=== PATIENT | male | born 1945 | race Caucasian/White ===

== ENCOUNTER 2022-11-26 05:49 | Inpatient (IN) ==
[2022-11-26] MEDS ORDERED: Lactated Ringers 1000 ml BAG 1,000 ML IV SCH (06:00)
[2022-11-26] MEDS ORDERED: Buffered Lidocaine 1% SYRIN 1 ml INTRADERM ONE (06:00)
[2022-11-26] MEDS ORDERED: Buffered Lidocaine 1% SYRIN 1 ml ONE (06:07)
[2022-11-26] MEDS ORDERED: ceFAZolin 2 GM PREMIX 2 GM/50 ML BAG ONE (06:07)
[2022-11-26 06:54] LABS: Rapid COVID-19 Molecular Undetected (Undetected)
[2022-11-26] MEDS ORDERED: Ondansetron 4 mg VIAL 2 MG/ML 2 ml VIAL ONE ×2 (07:14→08:42)
[2022-11-26] MEDS ORDERED: fentaNYL 100 mcg/2 ml 50 MCG/ML VIAL ONE ×2 (07:14→07:17)
[2022-11-26] MEDS ORDERED: Propofol 10 MG/ML 20 ML BTL ONE (07:15)
[2022-11-26] MEDS ORDERED: ROPIVACAINE 5 MG/ML 30 ML BTL (0.5%) ONE (07:15)
[2022-11-26] MEDS ORDERED: Lidocaine 2% PF 5 ML VIAL ONE (07:16)
[2022-11-26] MEDS ORDERED: Midazolam 2 mg/2 ml VIAL 1 mg/ml 2 ml VIAL (2 mg) ONE (07:16)
[2022-11-26] MEDS ORDERED: Bupivacaine 0.25% SDV 30 ML ONE (07:17)
[2022-11-26] MEDS ORDERED: Dexamethasone IV 4 MG/ML VIAL 1 ml VIAL ONE (08:42)
[2022-11-26] MEDS ORDERED: Acetaminophen IV 1 GM/100ML 1,000 MG/100 ML BAG IV ONE (08:51)
[2022-11-26] MEDS ORDERED: Ondansetron 4 mg VIAL 2 MG/ML 2 ml VIAL IV PRN ×2 (09:04→10:39)
[2022-11-26] MEDS ORDERED: fentaNYL 100 mcg/2 ml 50 MCG/ML VIAL IV PRN (09:04)
[2022-11-26] MEDS ORDERED: HYDROmorphone 1 MG/1 ML SYRINGE IV PRN (09:04)
[2022-11-26] MEDS ORDERED: Naloxone 0.4 mg VIAL 0.4 mg/ml 1 ml VIAL IV PRN (09:04)
[2022-11-26] MEDS ORDERED: Magnesium Hydroxide LIQ 30 ML UDC PO PRN (10:39)
[2022-11-26] MEDS ORDERED: Lactulose 30 ml UDC PO PRN (10:39)
[2022-11-26] MEDS ORDERED: Ondansetron ODT 4 mg TAB 4 MG TAB PO PRN (10:39)
[2022-11-26] MEDS: Carbidopa/Levodop 25/100 MG TAB PO SCH ×2 (13:39→22:21)
[2022-11-26] MEDS: ceFAZolin 1 GM ADVAN 1 GM in NS 0.9% 50 ML 50 ML IVPB SCH (17:44)
[2022-11-26] MEDS: Sodium Bicarb 650 mg (ANTACID) TAB PO SCH (20:39)
[2022-11-26] MEDS: Carbidopa/Levodop CR 50/200 TAB.CR PO SCH (20:41)
[2022-11-26] MEDS: Magnesium Hydroxide LIQ 30 ML UDC PO SCH ×2 (20:42→20:43)
[2022-11-26] MEDS: NF: Azelastine 0.15% NASAL(NF) 30 ML BTL BOTH NARES SCH (22:21)
[2022-11-27] MEDS: ceFAZolin 1 GM ADVAN 1 GM in NS 0.9% 50 ML 50 ML IVPB SCH ×2 (01:40→08:06)
[2022-11-27] MEDS: Carbidopa/Levodop 25/100 MG TAB PO SCH ×4 (04:14→23:03)
[2022-11-27 05:46] LABS: Hematocrit 33.5 % (38-53); Hemoglobin 11.5 g/dL (13.2-16.3); Mean Platelet Volume 9.5 fL (7.5-11.2); Platelet Count 118 10^3/uL (150-450)
[2022-11-27 06:13] LABS: Calcium 8.5 mg/dL (8.6-10.3); Creatinine, Serum 4.43 mg/dL (0.67-1.17); Potassium 4.9 mmol/L (3.5-5.0); eGFR CKD-EPI 12.8 (>60)
[2022-11-27] MEDS: Sodium Bicarb 650 mg (ANTACID) TAB PO SCH ×2 (08:12→23:02)
[2022-11-27] MEDS: Magnesium Hydroxide LIQ 30 ML UDC PO SCH ×2 (08:14→23:03)
[2022-11-27] MEDS: Vitamin THERAPEUTIC TAB PO SCH (08:14)
[2022-11-27] MEDS: NF: Azelastine 0.15% NASAL(NF) 30 ML BTL BOTH NARES SCH ×2 (08:17→23:02)
[2022-11-27] MEDS ORDERED: Aspirin EC 325 mg TAB.EC PO SCH (12:00)
[2022-11-27] MEDS: Enoxaparin 30 MG/0.3 ML SYR SUBCUT SCH (13:23)
[2022-11-27] MEDS: Carbidopa/Levodop CR 50/200 TAB.CR PO SCH (23:00)
[2022-11-28 06:14] LABS: Calcium 8.9 mg/dL (8.6-10.3); Creatinine, Serum 4.82 mg/dL (0.67-1.17); Potassium 4.8 mmol/L (3.5-5.0); eGFR CKD-EPI 11.6 (>60)
[2022-11-28] MEDS: Sodium Bicarb 650 mg (ANTACID) TAB PO SCH (08:23)
[2022-11-28] MEDS: Vitamin THERAPEUTIC TAB PO SCH (08:25)
[2022-11-28] MEDS: Magnesium Hydroxide LIQ 30 ML UDC PO SCH (08:26)
[2022-11-28] MEDS: Carbidopa/Levodop 25/100 MG TAB PO SCH ×2 (08:26→14:47)
[2022-11-28] MEDS: NF: Azelastine 0.15% NASAL(NF) 30 ML BTL BOTH NARES SCH (09:16)
[2022-11-28] MEDS: Enoxaparin 30 MG/0.3 ML SYR SUBCUT SCH (12:22)
[2022-11-28 15:05] VITALS: BP 137/73
== END 2022-11-28 18:03 | DRG 493 ==
LOC: AA 05:49 → SSU 10:39
PROVIDERS: ADMIT Orthopaedic Surgery; ATTEND Orthopaedic Surgery

== ENCOUNTER 2022-11-28 13:01 | Inpatient (IN) ==
[2022-11-28] MEDS ORDERED: Magnesium Hydroxide LIQ 30 ML UDC PO PRN (18:34)
[2022-11-28] MEDS: Carbidopa/Levodop 25/100 MG TAB PO SCH (21:15)
[2022-11-28] MEDS: Carbidopa/Levodop CR 50/200 TAB.CR PO SCH (21:16)
[2022-11-28] MEDS: Sodium Bicarb 650 mg (ANTACID) TAB PO SCH (21:17)
[2022-11-28] MEDS: Senna TAB 8.6 mg TAB PO PRN (21:19)
[2022-11-29 07:36] LABS: Albumin 3.6 g/dL (3.2-5.2); Albumin/Globulin Ratio 1.3 (1-3); Calcium 9.1 mg/dL (8.6-10.3); Creatinine, Serum 4.47 mg/dL (0.67-1.17); Globulin 2.7 g/dL (2-4); Total Bilirubin 1.1 mg/dL (0.2-1.0); Total Protein 6.3 g/dL (6.4-8.9); eGFR CKD-EPI 12.7 (>60)
[2022-11-29 08:03] LABS: ABS Eosinophils 0.3 10^3/uL (0.0-0.5); ABS Lymphocytes 1.1 10^3/uL (1.0-4.8); ABS Monocytes 1.3 10^3/uL (0.0-1.1); ABS Neutrophils 6.8 10^3/uL (1.5-7.6); ABS Nucleated RBC 0.01 10^3/ul; Eosinophil % 2.8 %; Hematocrit 36.8 % (38-53); Hemoglobin 12.5 g/dL (13.2-16.3); Lymphocyte % 11.8 %; Mean Corpuscular Hemoglobin 32.7 pg (27-33); Mean Corpuscular Hgb Conc 34.1 g/dL (31-36); Mean Platelet Volume 9.6 fL (7.5-11.2); Nucleated Red Blood Cells % 0.1 /100 WBC (0.0-0.4); Platelet Count 120 10^3/uL (150-450); Red Blood Count 3.83 10^6/uL (4.06-5.63); Red Cell Distribution Width 13.6 % (12-17); White Blood Count 9.5 10^3/uL (3.6-10.2)
[2022-11-29 08:13] LABS: Potassium 4.9 mmol/L (3.5-5.0)
[2022-11-29] MEDS: Sodium Bicarb 650 mg (ANTACID) TAB PO SCH ×2 (08:59→20:32)
[2022-11-29] MEDS: Carbidopa/Levodop 25/100 MG TAB PO SCH ×3 (09:00→18:00)
[2022-11-29] MEDS: Enoxaparin 30 MG/0.3 ML SYR SUBCUT SCH (12:12)
[2022-11-29] MEDS: Carbidopa/Levodop CR 50/200 TAB.CR PO SCH (20:32)
[2022-11-29] MEDS: PTO:Azelastine 0.15% NASAL(NF) 30 ML BTL BOTH NARES SCH (20:33)
[2022-11-30] MEDS: Sodium Bicarb 650 mg (ANTACID) TAB PO SCH ×2 (08:22→21:03)
[2022-11-30] MEDS: Carbidopa/Levodop 25/100 MG TAB PO SCH ×3 (08:22→18:24)
[2022-11-30] MEDS: Enoxaparin 30 MG/0.3 ML SYR SUBCUT SCH (12:09)
[2022-11-30] MEDS: PTO:Azelastine 0.15% NASAL(NF) 30 ML BTL BOTH NARES SCH ×2 (12:58→20:05)
[2022-11-30] MEDS: Carbidopa/Levodop CR 50/200 TAB.CR PO SCH (21:03)
[2022-12-01] MEDS: Carbidopa/Levodop 25/100 MG TAB PO SCH ×3 (08:30→16:49)
[2022-12-01] MEDS: Sodium Bicarb 650 mg (ANTACID) TAB PO SCH ×2 (08:31→21:21)
[2022-12-01] MEDS: PTO:Azelastine 0.15% NASAL(NF) 30 ML BTL BOTH NARES SCH ×2 (10:08→21:20)
[2022-12-01] MEDS: Enoxaparin 30 MG/0.3 ML SYR SUBCUT SCH (12:45)
[2022-12-01] MEDS: Carbidopa/Levodop CR 50/200 TAB.CR PO SCH (21:19)
[2022-12-02 07:12] LABS: Calcium 8.8 mg/dL (8.6-10.3); Creatinine, Serum 4.17 mg/dL (0.67-1.17); Potassium 4.5 mmol/L (3.5-5.0); eGFR CKD-EPI 13.8 (>60)
[2022-12-02] MEDS: Carbidopa/Levodop 25/100 MG TAB PO SCH ×3 (08:27→16:51)
[2022-12-02] MEDS: Sodium Bicarb 650 mg (ANTACID) TAB PO SCH ×2 (08:28→21:25)
[2022-12-02] MEDS: PTO:Azelastine 0.15% NASAL(NF) 30 ML BTL BOTH NARES SCH ×2 (08:40→21:26)
[2022-12-02] MEDS: Enoxaparin 30 MG/0.3 ML SYR SUBCUT SCH (13:37)
[2022-12-02] MEDS: Carbidopa/Levodop CR 50/200 TAB.CR PO SCH (21:22)
[2022-12-03] MEDS: Carbidopa/Levodop 25/100 MG TAB PO SCH ×3 (07:32→17:28)
[2022-12-03] MEDS: PTO:Azelastine 0.15% NASAL(NF) 30 ML BTL BOTH NARES SCH ×2 (07:32→21:17)
[2022-12-03] MEDS: Sodium Bicarb 650 mg (ANTACID) TAB PO SCH ×2 (07:33→21:23)
[2022-12-03] MEDS: Enoxaparin 30 MG/0.3 ML SYR SUBCUT SCH (13:39)
[2022-12-03 18:33] LABS: Urine Appearance Clear; Urine Bilirubin Negative (Negative); Urine Blood Negative (Negative); Urine Color Yellow; Urine Glucose Negative (Negative); Urine Ketones Negative (Negative); Urine Nitrite Negative (Negative); Urine Protein 2+(100 mg/dL) (Negative); Urine Specific Gravity 1.012 (1.002-1.030); Urine Urobilinogen Negative (Negative)
[2022-12-03 18:36] LABS: Urine Bacteria 1+ (Absent); Urine Red Blood Cell Trace(0-2/hpf) (Absent); Urine White Blood Cell Trace(0-5/hpf) (Absent)
[2022-12-03] MEDS: Carbidopa/Levodop CR 50/200 TAB.CR PO SCH (21:17)
[2022-12-04 06:46] LABS: ABS Basophils 0.1 10^3/uL (0.0-0.1); ABS Eosinophils 0.5 10^3/uL (0.0-0.5); ABS Lymphocytes 1.4 10^3/uL (1.0-4.8); ABS Monocytes 1.3 10^3/uL (0.0-1.1); ABS Neutrophils 5.6 10^3/uL (1.5-7.6); Eosinophil % 5.4 %; Hematocrit 35.6 % (38-53); Hemoglobin 12.3 g/dL (13.2-16.3); Lymphocyte % 16.1 %; Mean Corpuscular Hemoglobin 32.9 pg (27-33); Mean Corpuscular Hgb Conc 34.6 g/dL (31-36); Mean Platelet Volume 8.4 fL (7.5-11.2); Platelet Count 206 10^3/uL (150-450); Red Blood Count 3.74 10^6/uL (4.06-5.63); Red Cell Distribution Width 12.7 % (12-17); White Blood Count 8.8 10^3/uL (3.6-10.2)
[2022-12-04 07:33] LABS: Calcium 9.3 mg/dL (8.6-10.3); Potassium 4.7 mmol/L (3.5-5.0); eGFR CKD-EPI 14.5 (>60)
[2022-12-04] MEDS: Carbidopa/Levodop 25/100 MG TAB PO SCH ×3 (08:14→16:36)
[2022-12-04] MEDS: Sodium Bicarb 650 mg (ANTACID) TAB PO SCH ×2 (08:14→21:50)
[2022-12-04] MEDS: PTO:Azelastine 0.15% NASAL(NF) 30 ML BTL BOTH NARES SCH ×2 (08:17→21:48)
[2022-12-04] MEDS: Enoxaparin 30 MG/0.3 ML SYR SUBCUT SCH (08:17)
[2022-12-04] MEDS: Carbidopa/Levodop CR 50/200 TAB.CR PO SCH (21:38)
[2022-12-04] MEDS: Senna TAB 8.6 mg TAB PO PRN (21:39)
[2022-12-04] MEDS: PIMECROLIMUS 1% TOPICAL SCH (21:42)
[2022-12-05] MEDS: Sodium Bicarb 650 mg (ANTACID) TAB PO SCH ×2 (08:08→21:48)
[2022-12-05] MEDS: Carbidopa/Levodop 25/100 MG TAB PO SCH ×3 (08:08→16:50)
[2022-12-05] MEDS: PTO:Azelastine 0.15% NASAL(NF) 30 ML BTL BOTH NARES SCH ×2 (08:09→21:49)
[2022-12-05] MEDS: Enoxaparin 30 MG/0.3 ML SYR SUBCUT SCH (08:10)
[2022-12-05] MEDS: PIMECROLIMUS 1% TOPICAL SCH ×2 (13:02→21:48)
[2022-12-05] MEDS: Carbidopa/Levodop CR 50/200 TAB.CR PO SCH (21:49)
[2022-12-06 06:51] LABS: ABS Basophils 0.1 10^3/uL (0.0-0.1); ABS Eosinophils 0.5 10^3/uL (0.0-0.5); ABS Lymphocytes 1.4 10^3/uL (1.0-4.8); ABS Monocytes 1.1 10^3/uL (0.0-1.1); ABS Neutrophils 5.1 10^3/uL (1.5-7.6); Eosinophil % 6.2 %; Hematocrit 33.5 % (38-53); Hemoglobin 11.5 g/dL (13.2-16.3); Lymphocyte % 16.7 %; Mean Corpuscular Hemoglobin 32.5 pg (27-33); Mean Corpuscular Hgb Conc 34.2 g/dL (31-36); Mean Platelet Volume 8.7 fL (7.5-11.2); Platelet Count 198 10^3/uL (150-450); Red Blood Count 3.53 10^6/uL (4.06-5.63); White Blood Count 8.2 10^3/uL (3.6-10.2)
[2022-12-06 07:34] LABS: Albumin 3.4 g/dL (3.2-5.2); Albumin/Globulin Ratio 1.4 (1-3); Calcium 8.8 mg/dL (8.6-10.3); Creatinine, Serum 4.6 mg/dL (0.67-1.17); Globulin 2.5 g/dL (2-4); Potassium 4.4 mmol/L (3.5-5.0); Total Bilirubin 0.8 mg/dL (0.2-1.0); Total Protein 5.9 g/dL (6.4-8.9); eGFR CKD-EPI 12.3 (>60)
[2022-12-06] MEDS: PTO:Azelastine 0.15% NASAL(NF) 30 ML BTL BOTH NARES SCH ×2 (08:14→22:20)
[2022-12-06] MEDS: Enoxaparin 30 MG/0.3 ML SYR SUBCUT SCH (08:15)
[2022-12-06] MEDS: Carbidopa/Levodop 25/100 MG TAB PO SCH ×3 (08:17→17:24)
[2022-12-06] MEDS: Sodium Bicarb 650 mg (ANTACID) TAB PO SCH ×2 (08:17→22:20)
[2022-12-06] MEDS: PIMECROLIMUS 1% TOPICAL SCH ×2 (14:44→22:19)
[2022-12-06] MEDS: Carbidopa/Levodop CR 50/200 TAB.CR PO SCH (22:19)
[2022-12-07] MEDS: PTO:Azelastine 0.15% NASAL(NF) 30 ML BTL BOTH NARES SCH ×2 (08:05→20:23)
[2022-12-07] MEDS: Sodium Bicarb 650 mg (ANTACID) TAB PO SCH ×2 (08:06→20:23)
[2022-12-07] MEDS: PIMECROLIMUS 1% TOPICAL SCH ×2 (08:06→20:23)
[2022-12-07] MEDS: Enoxaparin 30 MG/0.3 ML SYR SUBCUT SCH (08:06)
[2022-12-07] MEDS: Carbidopa/Levodop 25/100 MG TAB PO SCH ×3 (08:07→17:06)
[2022-12-07] MEDS: Carbidopa/Levodop CR 50/200 TAB.CR PO SCH (20:22)
[2022-12-08] MEDS: PTO:Azelastine 0.15% NASAL(NF) 30 ML BTL BOTH NARES SCH ×2 (08:07→20:18)
[2022-12-08] MEDS: PIMECROLIMUS 1% TOPICAL SCH ×2 (08:07→20:17)
[2022-12-08] MEDS: Carbidopa/Levodop 25/100 MG TAB PO SCH ×3 (08:07→17:41)
[2022-12-08] MEDS: Sodium Bicarb 650 mg (ANTACID) TAB PO SCH ×2 (08:07→20:18)
[2022-12-08] MEDS: Enoxaparin 30 MG/0.3 ML SYR SUBCUT SCH (08:08)
[2022-12-08] MEDS: Senna TAB 8.6 mg TAB PO PRN (12:46)
[2022-12-08] MEDS ORDERED: Polyethylene Glycol 3350 17 GM PACKET PO PRN (18:53)
[2022-12-08] MEDS: Carbidopa/Levodop CR 50/200 TAB.CR PO SCH (20:18)
[2022-12-09 07:44] LABS: Creatinine, Serum 4.06 mg/dL (0.67-1.17); Potassium 4.6 mmol/L (3.5-5.0); eGFR CKD-EPI 14.2 (>60)
[2022-12-09] MEDS: Enoxaparin 30 MG/0.3 ML SYR SUBCUT SCH (08:09)
[2022-12-09] MEDS: PTO:Azelastine 0.15% NASAL(NF) 30 ML BTL BOTH NARES SCH ×2 (08:10→20:58)
[2022-12-09] MEDS: Sodium Bicarb 650 mg (ANTACID) TAB PO SCH ×2 (08:11→20:57)
[2022-12-09] MEDS: Carbidopa/Levodop 25/100 MG TAB PO SCH ×3 (08:11→17:39)
[2022-12-09] MEDS: PIMECROLIMUS 1% TOPICAL SCH ×2 (09:58→20:58)
[2022-12-09] MEDS: Carbidopa/Levodop CR 50/200 TAB.CR PO SCH (20:57)
[2022-12-10] MEDS: Carbidopa/Levodop 25/100 MG TAB PO SCH ×3 (08:26→16:36)
[2022-12-10] MEDS: Sodium Bicarb 650 mg (ANTACID) TAB PO SCH ×2 (08:26→20:42)
[2022-12-10] MEDS: PIMECROLIMUS 1% TOPICAL SCH ×2 (08:26→20:38)
[2022-12-10] MEDS: Enoxaparin 30 MG/0.3 ML SYR SUBCUT SCH (08:26)
[2022-12-10] MEDS: PTO:Azelastine 0.15% NASAL(NF) 30 ML BTL BOTH NARES SCH ×2 (08:27→20:38)
[2022-12-10] MEDS: Carbidopa/Levodop CR 50/200 TAB.CR PO SCH (20:39)
[2022-12-11] MEDS: Carbidopa/Levodop 25/100 MG TAB PO SCH ×3 (08:37→17:21)
[2022-12-11] MEDS: Sodium Bicarb 650 mg (ANTACID) TAB PO SCH ×2 (09:33→21:06)
[2022-12-11] MEDS: PTO:Azelastine 0.15% NASAL(NF) 30 ML BTL BOTH NARES SCH ×2 (09:33→21:05)
[2022-12-11] MEDS: Enoxaparin 30 MG/0.3 ML SYR SUBCUT SCH (09:35)
[2022-12-11] MEDS: PIMECROLIMUS 1% TOPICAL SCH ×2 (09:37→21:05)
[2022-12-11] MEDS: Carbidopa/Levodop CR 50/200 TAB.CR PO SCH (21:05)
[2022-12-12] MEDS: Enoxaparin 30 MG/0.3 ML SYR SUBCUT SCH (07:42)
[2022-12-12] MEDS: Sodium Bicarb 650 mg (ANTACID) TAB PO SCH ×2 (07:43→21:17)
[2022-12-12] MEDS: Carbidopa/Levodop 25/100 MG TAB PO SCH ×3 (07:44→17:14)
[2022-12-12] MEDS: PTO:Azelastine 0.15% NASAL(NF) 30 ML BTL BOTH NARES SCH ×2 (07:44→21:17)
[2022-12-12] MEDS: PIMECROLIMUS 1% TOPICAL SCH ×2 (12:57→21:18)
[2022-12-12] MEDS: Carbidopa/Levodop CR 50/200 TAB.CR PO SCH (21:18)
[2022-12-13 06:02] VITALS: BP 116/67
[2022-12-13 06:50] LABS: ABS Basophils 0.1 10^3/uL (0.0-0.1); ABS Eosinophils 0.6 10^3/uL (0.0-0.5); ABS Lymphocytes 1.7 10^3/uL (1.0-4.8); ABS Neutrophils 4.6 10^3/uL (1.5-7.6); Eosinophil % 7.6 %; Hematocrit 32.9 % (38-53); Hemoglobin 11.5 g/dL (13.2-16.3); Lymphocyte % 21.4 %; Mean Corpuscular Hemoglobin 32.2 pg (27-33); Mean Corpuscular Hgb Conc 34.8 g/dL (31-36); Mean Corpuscular Volume 92.4 fL (80-97); Mean Platelet Volume 8.5 fL (7.5-11.2); Nucleated Red Blood Cells % 0.1 /100 WBC (0.0-0.4); Platelet Count 216 10^3/uL (150-450); Red Blood Count 3.56 10^6/uL (4.06-5.63); Red Cell Distribution Width 12.7 % (12-17); White Blood Count 8.1 10^3/uL (3.6-10.2)
[2022-12-13 07:06] LABS: ALT 11 U/L (7-52); Albumin 3.5 g/dL (3.2-5.2); Albumin/Globulin Ratio 1.3 (1-3); Alkaline Phosphatase 77 U/L (35-149); Blood Urea Nitrogen 54 mg/dL (6-24); CO2 Carbon Dioxide 23 mmol/L (22-32); Calcium 8.9 mg/dL (8.6-10.3); Chloride 105 mmol/L (101-111); Creatinine, Serum 3.93 mg/dL (0.67-1.17); Globulin 2.6 g/dL (2-4); Glucose 100 mg/dL (70-100); Sodium 139 mmol/L (135-145); Total Protein 6.1 g/dL (6.4-8.9); eGFR CKD-EPI 14.8 (>60)
[2022-12-13 07:12] LABS: Anion Gap 11 mmol/L (2-16)
[2022-12-13] MEDS: Enoxaparin 30 MG/0.3 ML SYR SUBCUT SCH (09:50)
[2022-12-13] MEDS: PIMECROLIMUS 1% TOPICAL SCH (09:50)
[2022-12-13] MEDS: PTO:Azelastine 0.15% NASAL(NF) 30 ML BTL BOTH NARES SCH (09:50)
[2022-12-13] MEDS: Carbidopa/Levodop 25/100 MG TAB PO SCH (09:53)
[2022-12-13] MEDS: Sodium Bicarb 650 mg (ANTACID) TAB PO SCH (09:53)
== END 2022-12-13 17:51 | disposition home or self-care (01) | DRG 554 ==
LOC: PMRU 18:03
PROVIDERS: ADMIT Physical Medicine & Rehabilitation; ATTEND Physical Medicine & Rehabilitation